=== PATIENT | male | born 1960 | race Two or more races ===

== ENCOUNTER 2019-08-11 10:55 | Day surgery (SDC) | payer OTHER ==
[2019-08-08 12:06] VITALS: BMI 25.0
[2019-08-11] MEDS ORDERED: MIDAZOLAM HCL 2 MG/2 ML SINGLE DOSE VIAL ONE ×2 (13:50→14:40)
[2019-08-11] MEDS ORDERED: ROPIVACAINE HCL 0.5% 30ML VIAL ONE (13:50)
[2019-08-11] MEDS ORDERED: PROPOFOL 20 ML ONE ×4 (14:41)
[2019-08-11] MEDS ORDERED: SUCCINYLCHOLINE CHLORIDE 200 MG/10 ML SYRINGE ONE (14:41)
[2019-08-11] MEDS ORDERED: DEXAMETHASONE SOD PHOSPHATE 4 MG/1 ML VIAL ONE (14:42)
[2019-08-11] MEDS ORDERED: ONDANSETRON 4 MG/2 ML VIAL ONE (14:42)
[2019-08-11] MEDS ORDERED: ceFAZolin SODIUM 1 GM VIAL ONE (14:42)
[2019-08-11] MEDS ORDERED: KETOROLAC TROMETHAMINE 30 MG/1 ML VIAL ONE ×2 (14:42→16:36)
[2019-08-11] MEDS ORDERED: TRANEXAMIC ACID 1000 MG/10 ML VIAL ONE (15:18)
--- NOTE | 2019-08-11 17:01 | PN ---
Progress Note (short form) - Note Progress Note: 59M s/p RIGHT shoulder open Dayana procedure, Neer Decompression, & rotator cuff repair POD #0. -Pain control: Percocet, Duexis. -Incentive spirometry. -No chemical DVT PPx. -LUE sling. -No RIGHT shoulder ROM. -Daily RIGHT elbow, wrist & hand ROM. -Keep dressing clean & dry. -f/u in [facility] [place] [facility] on 08/17/2019; call for appointment; . Bandar Cortez MD (Orthopaedic Surgery).
--- NOTE | 2019-08-11 17:04 | OP ---
Operative Note - Note: Operative Date: 08/11/19 Pre-Operative Diagnosis: Right shoulder impingement syndrome and rotator cuff tear Operation: Right shoulder Neer decompression, Dayana procedure, rotator cuff repair Findings: Full thickness rotator cuff tear Implants: 2 x S&N suture anchors Post-Operative Diagnosis: Same as Pre-op Surgeon: Bandar Cortez [employer] Assistant: Quan Cortez Anesthesiologist/INTERIOR PANELER: Shaw Sorenson Anesthesia: General, Local Specimens Removed: Excision arthroplasty right shoulder Estimated Blood Loss (mls): 50 Fluid Volume Replaced (mls): 900 (Crystalloid) Operative Report Dictated: Yes
[2019-08-11] MEDS ORDERED: ONDANSETRON 4 MG/2 ML VIAL IVPUSH PRN (17:08)
[2019-08-11] MEDS ORDERED: oxyCODONE HCL 5 MG TABLET PO PRN ×2 (17:08)
[2019-08-11] MEDS ORDERED: PROMETHAZINE HCL 25 MG/1 ML VIAL IVPB PRN (17:08)
--- NOTE | 2019-08-11 17:47 | OP ---
DATE OF OPERATION: DATE OF DICTATION: 08/11/2019 SURGEON: Bandar Cortez MD PRINTING MACHINE OPERATOR TAPE RULES: Quan Cortez MD PREOPERATIVE DIAGNOSIS: Rotator cuff repair with impingement syndrome. POSTOPERATIVE DIAGNOSIS: Split bald head full tear right rotator cuff with impingement syndrome. ANESTHESIA: General anesthesia with LMA tube and scalene block. ANTIBIOTICS GIVEN: 2 g Kefzol. OPERATIONS PERFORMED: 1. Dayana excision arthroplasty clavicle. 2. Acromioplasty. 3. Transection of coracoacrominal ligament. 4. Repair of 2 split cuff tears. This was complex tear with a complete bald head. One anteroposterior tear repaired with No. 1 Vicryl. The tear of the rotator cuff off the bone bed itself was repaired with 2 Mitek Leon and Nephew suture anchors. OPERATION DETAILS: The patient was correctly identified, brought to the operating room, placed in a beach chair semi Hu position head up. Right shoulder region prepped and draped in the routine manner with Betadine scrub solution, wiped off with alcohol, DuraPrep applied. An incision was made from the tip of the acromion to the coracoid. Dissection was taken through the skin, subcutaneous tissue to the level of the deltoid muscle. A plane was developed in the subcutaneous tissue in the clavicle. A sharp Holmann placed on the posterior aspect of the clavicle and another Holmann placed in the anterior aspect of the clavicle. This was definitely 1 cm proximal to the acromioclavicular joint. An oscillating saw was used to cut a small, beveled resection of distal clavicle to thus complete an excision arthroplasty or Dayana procedure to the clavicle. This enabled adequate exposure of the subacromial space. Finger dissection by pulling on down was able to get a finger in to palpate the undersurface of the acromion and the tightness of the subacromial space and tunnel. The acromion was a curved shaped structure, which would be labeled as a classical type 3 beak acromion. A blunt Holmann was placed with the tip on the undersurface of the acromion leaving the humeral head downwards, and using the oscillating saw, we used multiple cuts until we were happy with the amount of bone resected because under vision and palpation, the impingement of the humeral head onto this beak of bone was prodigious and significant. Once this acromioplasty had been performed basically raising the roof of the shoulder joint, the humeral head was free, and its articulation did not impinge at all. We paid meticulous attention to the preservation of the deltoid attachment to the acromion throughout its length as well as to the clavicle itself. Once the decompression had been performed, the tissues were thoroughly lavaged and the rotator cuff inspected. A most unusual tear was encountered. This was a pair of tear with 2 tears noted, 1 with the entire cuff torn off the bone bed and the 2nd was with a tear approximately 2 cm proximal toward the muscle belly. These were complete 2 transected tears. Each tear was repaired separately as the edges were freshened with a 15 blade at the bleeding surface of tissue. The midsection of the intracavitary between the tears were relatively avascular, 1 Vicryl was utilized multiple sutures to repair the proximal tear. This was then easily brought to the footprint of its origin site, and because of there being no cuff at all, we elected to use 2 anchors, 1 anterior and 1 in the midsection, but also capturing much of the posterior cuff as possible. These were then tied appropriately. This obliterated the bald head of the humeral head. The wounds were thoroughly lavaged. The muscle and joints were repaired with No. 1 Vicryl interrupted sutures, subcutaneous 2-0 Vicryl, skin 3-0 Monocryl with Steri-Strips. No drains utilized. Operation went excellent well. Very difficult procedure, but the impingement syndrome has been removed, and the rotator cuff tear has been repaired in double fashion as outlined above. A sling was applied. Plan will be 6 weeks of mobilization. The start of pendular exercises as soon as possible. Vigorous physical therapy will commence at 6 weeks. MD YARELI Smith/[id number]
[2019-08-11 18:37] VITALS: PULSE 78
[2019-08-11 18:40] VITALS: BP 123/84; TEMP 97.8
[2019-08-12] MEDS ORDERED: NIFEdipine E.R. 90 MG TABLET (FP) PO SCH (10:00)
== END 2019-08-11 18:43 | disposition home or self-care (01) ==
LOC: FASU 10:55
PROVIDERS: ATTEND Orthopaedic Surgery Orthopaedic Surgery of the Spine
PROC: 0MN10ZZ Release Right Shoulder Bursa and Ligament, Open Approach (ICD-10-PCS; 2019-08-11)
PROC: 0LQ10ZZ Repair Right Shoulder Tendon, Open Approach (ICD-10-PCS; 2019-08-11)
PROC: 0PB90ZZ Excision of Right Clavicle, Open Approach (ICD-10-PCS; principal; 2019-08-11 15:44)
DX: M75.121 Complete rotator cuff tear or rupture of right shoulder, not specified as traumatic (principal); M75.41 Impingement syndrome of right shoulder
CPT/HCPCS: 94760